=== PATIENT | male | born 1945 | race Caucasian/White ===

== ENCOUNTER 2022-03-23 14:00 | Outpatient (RCR) | payer MEDICARE, SELFPAY | END 2022-07-23 13:37 | disposition home or self-care (01) | LOC: HO.PTCHIC 14:00 | PROVIDERS: Visit Provider Physical Medicine & Rehabilitation Sports Medicine | DX: M19.011 Primary osteoarthritis, right shoulder (principal); M19.012 Primary osteoarthritis, left shoulder | CPT/HCPCS: 97110; 97140; 97162 ==

== ENCOUNTER 2024-05-28 14:00 | Outpatient (RCR) | payer MEDICARE, SELFPAY | END 2024-11-21 09:25 | disposition home or self-care (01) | LOC: HO.PTCHIC 14:00 | PROVIDERS: PCP Physician Assistant; Visit Provider Physician Assistant | DX: M54.50 Low back pain, unspecified (principal) | CPT/HCPCS: 97110; 97112; 97140; 97162 ==

== ENCOUNTER 2024-11-01 13:00 | Outpatient (RCR) | payer MEDICARE, SELFPAY | END 2024-11-21 09:40 | disposition home or self-care (01) | LOC: HO.PTCHIC 13:00 | PROVIDERS: PCP Physician Assistant | DX: M47.896 Other spondylosis, lumbar region (principal) | CPT/HCPCS: 97110; 97162 ==